=== PATIENT | male | born 1980 | race American Indian/Alaskan Native ===

== ENCOUNTER 2016-08-14 12:02 | Emergency (ER) | payer SELFPAY ==
--- NOTE | 2016-08-14 16:49 | XRay Report ---
BILATERAL FOREARM RADIOGRAPHS INDICATION: Previous fracture. COMPARISON: None similar at this institution. FINDINGS: Bilateral forearm radiographs demonstrate overlying cast artifact limiting bony detail. RIGHT: Forearm and wrist bones intact. One of the views though demonstrates a fifth metacarpal fracture towards the base with medial cortical offset/displacement of approximately 3 mm. LEFT: Mid ulnar shaft fracture with maximum cortical offset/displacement of 5 mm noted with possible subtle comminution. Above fracture lines clearly visible. No joint involvement. CONCLUSION: Left ulnar shaft and right fifth metacarpal base acute/recent fractures, as described. Please correlate. Thank you for the opportunity to participate in this patient's care.
[2016-08-14 17:23] VITALS: BP 141/82
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
== END 2016-08-14 18:41 ==
LOC: ED 12:02
DX: S52.292A Other fracture of shaft of left ulna, initial encounter for closed fracture (principal); F20.9 Schizophrenia, unspecified; F17.200 Nicotine dependence, unspecified, uncomplicated; F12.10 Cannabis abuse, uncomplicated; S62.397A Other fracture of fifth metacarpal bone, left hand, initial encounter for closed fracture; Z88.8 Allergy status to other drugs, medicaments and biological substances; Y04.0XXA Assault by unarmed brawl or fight, initial encounter; Y93.89 Activity, other specified; Y99.8 Other external cause status; Y92.89 Other specified places as the place of occurrence of the external cause
CPT/HCPCS: 99283